=== PATIENT | male | born 1995 | race Caucasian/White ===

== ENCOUNTER 2018-06-12 04:05 | Emergency (ER) | payer OTHER, SELFPAY ==
[2018-06-12 04:10] VITALS: BP 148/88; PULSE 107; RESP 16; TEMP 36.9; O2SAT 96; BMI 23.0
--- NOTE | 2018-06-12 04:18 | ED.NAVMDI ---
HPI - Nausea/Vomiting/Diarrhea General Chief complaint: Nausea/Vomiting/Diarrhea Stated complaint: N/V Time Seen by Provider: 06/12/18 04:10 Source: patient Mode of arrival: ambulatory Limitations: no limitations History of Present Illness HPI Narrative: This is a 23-year-old male who comes to the emergency department with complaint of vomiting and diarrhea that started about 7 o'clock last night. Patient states that he started to have some lower abdominal discomfort followed by vomiting and then diarrhea. Patient states that he has not been able to keep down any fluids. He has not had any urine output in several hours. He states that his stool has been quite dark. He denies any fevers. Patient's he has some discomfort in his lower back as well. He denies any similar symptoms in the past. He does take meloxicam the denies any other medications. He has a history of prior shoulder surgery but denies any other medical problems. Patient also did share that he had a quesadilla from a food truck at 2pm yesterday. Onset (ago): hour(s) Related Data Home Medications Medication Instructions Recorded Confirmed cetirizine 10 mg PO QDAYP PRN #0 07/04/17 Previous Rx's Medication Instructions Recorded hydroxyzine pamoate 0 mg PO Q4HP PRN #40 cap 07/04/17 hydroxyzine pamoate [Vistaril] 25 mg PO Q4HP PRN #40 cap 07/04/17 oxycodone 0 mg PO Q3HP PRN #40 07/04/17 oxycodone 5 mg PO Q4HP PRN #40 tab 07/04/17 Allergies Allergy/AdvReac Type Severity Reaction Status Date / Time No Known Allergies Allergy Uncoded 12/20/17 12:47 Review of Systems Review of Systems All systems reviewed & are unremarkable except as noted in HPI and below Constitutional Denies fever(s) and Denies night sweats Cardiovascular Denies chest pain, Denies irregular heart rhythm, Denies lightheadedness, Denies palpitations, Denies dyspnea and Denies orthopnea Respiratory Denies dyspnea and Denies wheezing Gastrointestinal Gastrointestinal: Reports abdominal pain, Denies hematochezia, Reports change in bowel habits, Reports change in stool character, Denies coffee ground emesis, Denies constipation, Reports cramping, Reports diarrhea, Reports nausea, Reports vomiting and Denies hematemesis Genitourinary Denies urinary frequency, Denies urinary incontinence and Reports other (Decreased urine output) Musculoskeletal Reports back pain (Lower lumbar) Endocrine Denies palpitations Allergic/Immunologic Denies wheezing [facility] Surgical History H/O shoulder surgery (Chronic) Social History Smoking Status: Former smoker additional social history: Based at [facility], moving this to [place]. Exam Narrative Exam Narrative: GENERAL: Alert and oriented x three, then male in mild distress. HEENT: Head normocephalic, atraumatic, EOMI, pupils reactive, face symmetric, moist mucous membranes NECK: Supple, full range of motion CARDIOVASCULAR: Regular rate and rhythm without murmurs, rubs or gallops. RESPIRATORY: Breath sounds equal bilaterally, no wheezes rales or rhonchi. ABDOMEN: Soft, mild generalized tenderness. Hyper active bowel sounds all 4 quadrants. No guarding or rebound, rigidity, no mass : No CVA tenderness EXTREMITIES: Normal range of motion, no clubbing or edema. Neurovascularly intact NEUROLOGICAL: Cranial nerves II through XII grossly intact. Moving all extremities. Normal gait. SKIN: Warm, dry, no petechiae, no rashes or lesions. Initial Vital Signs Initial Vital Signs: Vital Signs Temperature 98.4 F 06/12/18 04:10 Pulse Rate 107 H 06/12/18 04:10 Respiratory Rate 16 06/12/18 04:10 Blood Pressure 148/88 H 06/12/18 04:10 Pulse Oximetry 96 06/12/18 04:10 Course Orders Ordered: ED Orders 06/12/18 04:33 Complete Blood Count AUTO DIFF Stat Comprehensive Metabolic Panel Stat Lipase Stat 06/12/18 06:23 Ictotest Urine Stat Urine Microscopic Stat Discontinued Medications Sodium Chloride (Normal Saline 0.9%) 1,000 mls @ 1,000 mls/hr IV BOLUS ONE Stop: 06/12/18 05:15 Last Infusion: 06/12/18 05:35 Dose: 0 mls/hr Admin: 06/12/18 04:21 Dose: 1,000 mls/hr Sodium Chloride (Normal Saline 0.9%) 1,000 mls @ 1,000 mls/hr IV BOLUS PRN PRN Reason: Fluid replacement Last Infusion: 06/12/18 06:26 Dose: 0 mls/hr Admin: 06/12/18 05:40 Dose: 1,000 mls/hr Ondansetron HCl (Zofran) 4 mg IV NOW ONE Stop: 06/12/18 04:17 Last Admin: 06/12/18 04:21 Dose: 4 mg Ondansetron HCl (Zofran Odt Prepack) 1 bottle MISC SEEINSTR ONE Stop: 06/12/18 06:21 Last Admin: 06/12/18 06:21 Dose: 1 bottle Reevaluation(s) Reevaluation #1: Recheck after fluids and Zofran. Patient feeling a little better but has not made urine. Time: 05:37 Reevaluation #2: Recheck after 2nd L fluids patient has made urine which does show some ketones, protein your ability in. Patient does have elevated white count his heart rate has improved. We discussed that this could be for reductions causes but could also potentially reactive to patient also discussed that his bilirubin was slightly elevated. At this time patient is feeling much improved and would like to return home. His nausea has abated. He has some slight abdominal cramping that is generalized but states that it feels improved as well. We discussed signs and symptoms to watch for and reasons to return as we have not done any further imaging and that without imaging we cannot rule out all causes. Time: 06:14 Vital Signs - 8 hr 06/12/18 04:10 06/12/18 06:28 Temperature 98.4 F 98.7 F Pulse Rate 107 H 77 Respiratory Rate 16 15 Blood Pressure 148/88 H 99/57 L Pulse Oximetry 96 97 MDM - Nausea/Vomiting/Diarrhea Lab Data Attestation: I reviewed the patient's lab results. Result diagrams: 06/12/18 04:33 06/12/18 04:33 Lab Results 06/12/18 06/12/18 06/12/18 Range/Units 04:33 04:33 04:33 WBC 17.0 H (4.5-11.0) X10^3/uL RBC 7.38 H (4.5-5.9) X10^6/uL Hgb 14.6 (13.5-17.5) g/dL Hct 45.7 (41-53) % MCV 61.8 L (80-100) fL MCH 19.7 L (26-34) PG MCHC 31.9 (30-36) % RDW 15.7 H (11.6-14.8) % Plt Count 231 (150-400) X10^3/uL Neut % (Auto) 95.0 H (50-75) % Lymph % (Auto) 1.6 L (25-40) % [place] % (Auto) 3.0 (3-14) % Eos % (Auto) 0.1 L (2-4) % Baso % (Auto) 0.3 (0-2) % Neut # (Auto) 20591 H (7870-0622) /uL Sodium 142 (137-145) mmol/L Potassium 4.4 (3.4-5.1) mmol/L Chloride 101 (98-107) mmol/L Carbon Dioxide 27 (22-32) mmol/L BUN 18 (9-20) mg/dL Creatinine 0.80 (0.66-1.25) mg/dL Estimated GFR > 60.0 (>60) mL/min BUN/Creatinine Ratio 22.5 H (6-22) Glucose 127 H (70-100) mg/dL Calcium 9.3 (8.4-10.2) mg/dL Total Bilirubin 1.6 H (0.2-1.3) mg/dL AST 21 (17-59) IU/L ALT 30 (21-72) IU/L Alkaline Phosphatase 70 (38-126) U/L Total Protein 7.8 (6.3-8.2) g/dL Albumin 4.9 (3.5-5.0) g/dL Globulin 2.9 (1.7-4.1) g/dL Albumin/Globulin Ratio 1.7 (1.0-2.8) Lipase 62 (23-300) U/L Urine Dip Bedside Urine Glucose Negative Bedside Urine Bilirubin ++ 2 Bedside Urine Ketone +++ 80 Urine Specific Meherrin 1.010 Bedside Urine Occult Blood - Negative Bedside Urine pH 8.5 Bedside Urine Protein +/- 15 Bedside Urine Urobilinogen +/- 1mg Bedside Urine Nitrite - Negative Bedside Urine Leukocytes - Negative Esterase Discharge Plan Departure Patient Disposition: Home Clinical Impression: Nausea, vomiting and diarrhea Discharge Date/Time: 06/12/18 06:30 Interventions: ED Discharge Assessment Last Done: 06/12/18 06:28 Instructions: DI for Vomiting -- Adult Activity Restrictions/Additional Instructions: Follow up in 24-48 hours if your symptoms have not completely resolved. You may take Zofran every 6 hr as needed for nausea and vomiting. Return to the emergency department for fevers greater than 100.4F, persistent vomiting, black or bloody stools, increasing abdominal pain or other new or concerning symptoms. Prescriptions: No Action cetirizine 10 MG tablet 10 mg PO QDAYP PRNQty: 0 RF: 0 oxycodone 5 MG tablet 5 mg PO Q4HP PRNQty: 40 RF: 0 hydroxyzine pamoate [Vistaril] 25 MG capsule 25 mg PO Q4HP PRNQty: 40 RF: 0 oxycodone 5 MG tablet PO Q3HP PRNQty: 40 RF: 0 hydroxyzine pamoate 25 MG capsule PO Q4HP PRNQty: 40 RF: 0
[2018-06-12] MEDS: ONDANSETRON 4 MG/2 ML INJ IV (04:21)
[2018-06-12] MEDS: SODIUM CHLORIDE 0.9% 1,000 ML 1000 ML IV ×2 (04:21→05:40)
[2018-06-12 04:40] LABS: Add Manual Diff / Slide Review NO; Basophils Percent Auto 0.3 % (0-2); Eosinophils Percent Auto 0.1 % (2-4); Hematocrit 45.7 % (41-53); Hemoglobin 14.6 g/dL (13.5-17.5); Lymphocytes Percent Auto 1.6 % (25-40); Mean Corpuscular HGB Conc 31.9 % (30-36); Mean Corpuscular Hemoglobin 19.7 PG (26-34); Mean Corpuscular Volume 61.8 fL (80-100); Neutrophils Absolute Auto 16100 /uL (3000-5900); Platelet Count 231 X10^3/uL (150-400); Red Cell Distribution Width 15.7 % (11.6-14.8)
[2018-06-12 04:46] LABS: Lipase 62 U/L (23-300)
[2018-06-12 04:47] LABS: Red Blood Cell Count 7.38 X10^6/uL (4.5-5.9)
[2018-06-12 04:48] LABS: Alanine Aminotransferase 30 IU/L (21-72); Albumin 4.9 g/dL (3.5-5.0); Albumin Globulin Ratio 1.7 (1.0-2.8); Alkaline Phosphatase 70 U/L (38-126); Aspartate Aminotransferase 21 IU/L (17-59); BUN Creatinine Ratio 22.5 (6-22); Bilirubin Total 1.6 mg/dL (0.2-1.3); Blood Urea Nitrogen 18 mg/dL (9-20); Calcium 9.3 mg/dL (8.4-10.2); Carbon Dioxide 27 mmol/L (22-32); Chloride 101 mmol/L (98-107); Estimated Glomerular Filt Rate > 60.0 mL/min (>60); Globulin 2.9 g/dL (1.7-4.1); Glucose 127 mg/dL (70-100); HEMOLYSIS < 15 (0-50); Potassium 4.4 mmol/L (3.4-5.1); Sodium 142 mmol/L (137-145); Total Protein 7.8 g/dL (6.3-8.2)
[2018-06-12] MEDS: ONDANSETRON 4 MG ODT PREPACK 1 BOTTLE MISC (06:21)
[2018-06-12 06:25] LABS: RBC Urine None Seen (0-5/HPF)
[2018-06-12 06:28] VITALS: BP 99/57; PULSE 77; RESP 15; TEMP 37.1; O2SAT 97
[2018-06-12 06:35] LABS: Anisocytosis 1+; Basophilic Stippling 1+; Microcytosis 2+
[2018-06-12 06:39] LABS: Bacteria Urine Few (2-10); Culture Indicated Urine Cult Not Indicated; Ictotest Urine Negative (Negative); Mucus Urine 2+ (Negative); Squamous Epithelial Cell Urine 0-1 /HPF; WBC Urine 0-1/HPF (0-5/HPF)
== END 2018-06-12 06:30 | disposition home or self-care (01) ==
PROVIDERS: Emergency Provider Emergency Medicine
DX: R11.2 Nausea with vomiting, unspecified (principal); R19.7 Diarrhea, unspecified
CPT/HCPCS: 36591; 80053; 81003; 81015; 83690; 85025; 96361; 96374; 99283; 99284; J2405